=== PATIENT | female | born 1935 | race Two or more races ===

== ENCOUNTER 2016-08-07 03:37 | Emergency (ER) | payer MEDICAID ==
[~2016-08-07] VITALS: Ht 160 cm; Wt 46.3 kg
[~2016-08-07 03:37] MED LIST: B COMPLEX IM
[2016-08-07 03:40] VITALS: BP 104/66
== END 2016-08-07 04:49 | disposition expired ==
LOC: ER 03:39 → EDBD 03:39 → ER 04:49
DX: I46.9 Cardiac arrest, cause unspecified (principal); Z66 Do not resuscitate
CPT/HCPCS: 99285; A4606; Z7610